=== PATIENT | female | born 1980 | race Caucasian/White ===

== ENCOUNTER 2021-01-11 10:50 | Inpatient (IN) | payer OTHER ==
[~2021-01-11] VITALS: Ht 157.4 cm; Wt 129.3 kg
[2021-01-11 10:57] VITALS: BP 110/84
[2021-01-11] MEDS ORDERED: CARVEDILOL3.125 MG PO (10:57)
[2021-01-11 11:45] LABS: BASO # 0.1 10*3/uL (0.0-0.1); BASO % 0.4 % (0.0-1.0); EOS # 0.1 10*3/uL (0.0-0.4); EOS % 0.3 % (1.0-4.0); LYMPH # 2.2 10*3/uL (1.3-4.4); LYMPH % 13.7 % (27.0-41.0); MEAN CELL VOLUME 81.3 fl (81.0-99.0); MEAN CORPUSCULAR HGB 24.6 pg (27.0-31.0); MEAN CORPUSCULAR HGB CONC 30.3 g/dl (33.0-37.0); MEAN PLATELET VOLUME 11.8 fl (9.6-12.3); MONO # 0.8 10*3/uL (0.1-1.0); MONO % 4.6 % (3.0-9.0); NEUT % 79.7 % (47.0-73.0); PLATELET COUNT AUTOMATED 108 10*3/uL (130-400); RED BLOOD COUNT 4.55 10*6/uL (4.10-5.10); WHITE BLOOD COUNT 16.4 10*3/uL (4.8-10.8)
[2021-01-11 12:08] LABS: ALBUMIN 2.3 gm/dl (3.1-4.5); ALKALINE PHOSPHATASE 103 U/L (45-117); BUN 10 mg/dl (7-24); CHLORIDE 97 mmol/L (98-107); CREATININE 0.91 mg/dL (0.55-1.02); POTASSIUM 4.2 mmol/L (3.5-5.1); SGOT/AST 8 IU/L (3-35); SGPT/ALT 15 U/L (12-78); SODIUM 129 mmol/L (136-145); TOTAL PROTEIN 7.3 gm/dL (6.4-8.2)
[2021-01-11 12:10] LABS: TROPONIN I < 0.015 ng/ml (<0.045)
[2021-01-11] MEDS ORDERED: PROTONIX40 MG PO (13:36)
[2021-01-11 13:53] LABS: BILIRUBIN Negative (Negative); BLOOD Negative (Negative); CLARITY Clear (Clear); COLOR Yellow (Yellow); GLUCOSE 3+ (Negative); KETONE Negative (Negative); LEUKO ESTERASE Negative (Negative); NITRITE Negative (Negative); SPECIFIC GRAVITY >= 1.030 (1.001-1.030); UROBILINOGEN 0.2 E.U./dl (0.0-1.0)
[2021-01-11 14:08] LABS: WBC 0-2 wbc/hpf (0-5)
[2021-01-11 14:09] LABS: YEAST 2+
[2021-01-11 17:58] VITALS: BP 112/82
[2021-01-11 20:00] VITALS: BP 114/78
[2021-01-11 22:00] VITALS: BP 110/78
[2021-01-12] VITALS: BP 108/82
[2021-01-12 04:32] LABS: BASO # 0.1 10*3/uL (0.0-0.1); BASO % 0.3 % (0.0-1.0); EOS # 0.1 10*3/uL (0.0-0.4); EOS % 0.4 % (1.0-4.0); HEMATOCRIT 36.7 % (37.0-47.0); LYMPH # 3.2 10*3/uL (1.3-4.4); LYMPH % 15.3 % (27.0-41.0); MEAN CELL VOLUME 80.3 fl (81.0-99.0); MEAN CORPUSCULAR HGB 24.5 pg (27.0-31.0); MEAN CORPUSCULAR HGB CONC 30.5 g/dl (33.0-37.0); MEAN PLATELET VOLUME 11.5 fl (9.6-12.3); MONO % 4.7 % (3.0-9.0); NEUT # 16.4 10*3/uL (2.3-7.9); NEUT % 77.9 % (47.0-73.0); PLATELET COUNT AUTOMATED 105 10*3/uL (130-400); RED BLOOD COUNT 4.57 10*6/uL (4.10-5.10); RED CELL DISTRI WIDTH 16.9 % (0-14.5); WHITE BLOOD COUNT 21.1 10*3/uL (4.8-10.8)
[2021-01-12 04:51] LABS: ALBUMIN 2.3 gm/dl (3.1-4.5); ALKALINE PHOSPHATASE 102 U/L (45-117); BUN 8 mg/dl (7-24); CHLORIDE 103 mmol/L (98-107); CHOLESTEROL 151 mg/dL (<200); CREATININE 0.64 mg/dL (0.55-1.02); FREE T4 1.58 ng/dl (0.76-1.46); LDL CHOLESTEROL 95 mg/dL (9-159); POTASSIUM 3.5 mmol/L (3.5-5.1); SGOT/AST 7 IU/L (3-35); SGPT/ALT 14 U/L (12-78); SODIUM 134 mmol/L (136-145); TRIGLYCERIDES 137 mg/dl (<150)
[2021-01-12 06:34] VITALS: BP 172/97
[2021-01-12 07:54] VITALS: BP 142/68
[2021-01-12 09:45] VITALS: BP 147/92
[2021-01-12 17:41] VITALS: BP 138/72
[2021-01-13] VITALS: BP 138/72
[2021-01-13 08:00] VITALS: BP 162/93
[2021-01-13 12:00] VITALS: BP 160/88
[2021-01-13 16:00] VITALS: BP 158/77
[2021-01-13 19:30] VITALS: BP 132/88
[2021-01-13 20:32] VITALS: BP 142/88
== END 2021-01-13 22:35 | disposition left against medical advice (07) | DRG 720 ==
LOC: ED 10:50 → EDHOLD 12:59
PROVIDERS: Internal Medicine; Physician Assistant; ADMIT Internal Medicine; ATTEND Internal Medicine
PROC: 4B02XSZ Measurement of Cardiac Pacemaker, External Approach (ICD-10-PCS; principal; 2021-01-13)
DX: A41.9 Sepsis, unspecified organism (principal); E11.65 Type 2 diabetes mellitus with hyperglycemia; F11.23 Opioid dependence with withdrawal; I33.0 Acute and subacute infective endocarditis; D64.9 Anemia, unspecified; D69.6 Thrombocytopenia, unspecified; E44.0 Moderate protein-calorie malnutrition; E87.8 Other disorders of electrolyte and fluid balance, not elsewhere classified; F41.9 Anxiety disorder, unspecified; B19.20 Unspecified viral hepatitis C without hepatic coma; J44.9 Chronic obstructive pulmonary disease, unspecified; I11.0 Hypertensive heart disease with heart failure; I50.9 Heart failure, unspecified; J45.909 Unspecified asthma, uncomplicated; K21.9 Gastro-esophageal reflux disease without esophagitis; O90.3 Peripartum cardiomyopathy; E66.01 Morbid (severe) obesity due to excess calories; Z68.43 Body mass index [BMI] 50.0-59.9, adult; Z45.010 Encounter for checking and testing of cardiac pacemaker pulse generator [battery]; Z88.8 Allergy status to other drugs, medicaments and biological substances; Z82.49 Family history of ischemic heart disease and other diseases of the circulatory system; Z91.14 Patient's other noncompliance with medication regimen; Z83.3 Family history of diabetes mellitus